=== PATIENT | female | born 1990 | race Two or more races ===

== ENCOUNTER 2021-06-09 12:50 | Observation (INO) | payer MEDICAID ==
[2021-06-09] MEDS ORDERED: PREN-96 PO (13:38)
[2021-06-09] MEDS ORDERED: ACET-1156 PO (13:39)
== END 2021-06-09 15:07 | disposition home or self-care (01) ==
LOC: LDRP 12:50
PROVIDERS: ADMIT Obstetrics & Gynecology; ATTEND Obstetrics & Gynecology
DX: O36.5930 Maternal care for other known or suspected poor fetal growth, third trimester, not applicable or unspecified (principal); Z3A.35 35 weeks gestation of pregnancy
CPT/HCPCS: 59025; 76818; 81002; G0378; G0379

== ENCOUNTER 2021-06-11 19:53 | Observation (INO) | payer MEDICAID ==
[~2021-06-11] VITALS: Ht 154.9 cm; Wt 70.8 kg
[~2021-06-11 19:53] MED LIST: ACET-1156 PO; PREN-96 PO
[2021-06-11] MEDS ORDERED: ACET-1156 PO (20:48)
[2021-06-11] MEDS ORDERED: PREN1TAB52 PO (20:48)
== END 2021-06-11 21:49 | disposition home or self-care (01) ==
LOC: LDRP 19:53
PROVIDERS: ADMIT Obstetrics & Gynecology; ATTEND Obstetrics & Gynecology
DX: O36.5930 Maternal care for other known or suspected poor fetal growth, third trimester, not applicable or unspecified (principal); Z3A.38 38 weeks gestation of pregnancy; Z98.891 History of uterine scar from previous surgery
CPT/HCPCS: 59025; 76818; 81002; 94760; G0378; G0379

== ENCOUNTER 2021-06-14 11:42 | Observation (INO) | payer MEDICAID ==
[~2021-06-14 11:42] MED LIST changes: +PREN1TAB52 PO
== END 2021-06-14 21:51 | disposition home or self-care (01) ==
LOC: LDRP 19:54
PROVIDERS: ADMIT Obstetrics & Gynecology Obstetrics; ATTEND Obstetrics & Gynecology Obstetrics
DX: O36.5930 Maternal care for other known or suspected poor fetal growth, third trimester, not applicable or unspecified (principal); Z20.822 Contact with and (suspected) exposure to COVID-19; Z3A.38 38 weeks gestation of pregnancy; Z98.891 History of uterine scar from previous surgery
CPT/HCPCS: 59025; 76818; 81002; G0378; G0379; U0003

== ENCOUNTER 2021-06-16 05:57 | Inpatient (IN) | payer MEDICAID ==
[~2021-06-16] VITALS: Ht 154.9 cm; Wt 70.8 kg
[2021-06-16] VITALS (17 sets, daily range): BP systolic 94–117; BP diastolic 40–84
[2021-06-16] MEDS ORDERED: ceFAZolin 1GM/50ML 50 ML IV ONE (06:30)
[2021-06-16] MEDS ORDERED: LACTATED RINGER'S 1,000 ML IV SCH (06:30)
[2021-06-16] MEDS ORDERED: SODIUM CITR/CITRIC ACID ORAL SOLN 30 ML PO ONE (06:30)
[2021-06-16] MEDS ORDERED: LACTATED RINGER'S 1,000 ML IV ONE (06:30)
[2021-06-16 08:00] LABS: Basophils # (auto) 0 10 ^3/uL (0-0.2); Basophils % (auto) 0.3 % (0.0-2.0); Eosinophils # (auto) 0.1 10 ^3/uL (0-0.8); Eosinophils % (auto) 0.8 % (0.0-7.0); Hematocrit 35.6 % (36.0-46.0); Hemoglobin 11.9 g/dL (12.2-16.2); Lymphocytes # (auto) 2.3 10 ^3/uL (0.4-5.4); Lymphocytes % (auto) 23.7 % (10.0-50.0); Mean Corpuscular Hemoglobin 29.1 pg (28.0-32.0); Mean Corpuscular Hgb Conc. 33.3 g/dL (32.0-36.0); Mean Corpuscular Volume 87.5 fL (80.0-100.0); Monocytes # (auto) 0.8 10 ^3/uL (0-1.3); Monocytes % (auto) 8.3 % (0.0-12.0); Neutrophils # (auto) 6.5 10 ^3/uL (1.6-8.6); Neutrophils % (auto) 66.9 % (37.0-80.0); Nucleated Red Blood Cells % 0.1 %; Red Blood Cells 4.07 10^6/uL (4.0-5.20); Red Cell Distribution Width 13.4 % (11.8-14.3); White Blood Cell 9.7 10^3/uL (4.4-10.8)
[2021-06-16] MEDS ORDERED: TETRACAINE 1% INJ 2 ML VIAL IJ ONE (08:11)
[2021-06-16 08:19] LABS: Albumin 2.4 g/dL (3.4-5.0); BUN/Creatinine Ratio 13.1; Bilirubin, Total 0.3 mg/dL (0.2-1.0); Calcium 8.4 mg/dL (8.5-10.1); Total Protein 6.7 g/dL (6.4-8.2)
[2021-06-16] MEDS ORDERED: fentaNYL CITRATE 100 MCG/2 ML VL ONE (08:20)
[2021-06-16] MEDS ORDERED: MIDAZOLAM HCL 2MG/2ML 2ml VIAL (1mg/ml) ONE (08:21)
[2021-06-16 08:33] LABS: INR 0.88 (0.9-1.15); Partial Thromboplastin Time 24.8 sec (23.6-33.0)
[2021-06-16] MEDS ORDERED: MORPHINE SULF PF 2 MG/2 ML SYRG ONE (08:49)
[2021-06-16] MEDS ORDERED: NALBUPHINE HCL 10 MG/1ml INJECTION SUBCUT ONE (09:00)
[2021-06-16] MEDS ORDERED: NALOXONE HCL 0.4 MG/ML VIAL IV PRN (09:00)
[2021-06-16] MEDS ORDERED: MIDAZOLAM HCL 2MG/2ML 2ml VIAL (1mg/ml) IV PRN (09:00)
[2021-06-16] MEDS ORDERED: LABETALOL HCL 5 MG/ML 4ML SYRINGE IV PRN (09:00)
[2021-06-16] MEDS ORDERED: HYDROmorphone HCL 2 MG/ML VL IV PRN (09:00)
[2021-06-16] MEDS ORDERED: DexAMETHasone SOD PHOS 10MG/1ML VIAL INJ IV PRN (09:00)
[2021-06-16] MEDS ORDERED: ePHEDrine SULFATE 50 MG/ML AMP IV PRN (09:00)
[2021-06-16] MEDS ORDERED: ONDANSETRON HCL 4 MG/2 ML VIAL IV PRN ×2 (09:00→09:45)
[2021-06-16] MEDS ORDERED: KETOROLAC TROMETH 30 MG/ML 1ML VIAL IV PRN (09:00)
[2021-06-16] MEDS ORDERED: oxyTOCIN 10 UNIT/ML 10ML VIAL ONE (09:09)
[2021-06-16] MEDS ORDERED: CARBOPROST TROMETHAMINE 250 MCG/1ML VIAL IM ONE (09:29)
[2021-06-16] MEDS ORDERED: ceFAZolin 1GM/50ML 50 ML IV SCH (09:45)
[2021-06-16] MEDS ORDERED: LACT. RINGERS/OXYTOCIN 20UNITS 1,000 ML IV ONE (09:45)
[2021-06-16] MEDS ORDERED: GUM (CHEWING) 1 GUM CHEW CHEW ONE (09:45)
[2021-06-16] MEDS: ceFAZolin 1GM/50ML 50 ML IV SCH ×2 (15:45→23:43)
[2021-06-16 16:00] LABS: Urine Bacteria FEW /hpf (None Seen); Urine Blood 1+ /uL (Negative); Urine Mucus FEW (None Seen); Urine Specific Gravity 1.012 (1.001-1.035); Urine WBC 30 /hpf (0 - 5)
[2021-06-16 16:19] LABS: Alcohol, Urine < 3.0 mg/dL (0-10); Amphetamine Screen, Urine NEGATIVE (NEGATIVE); Barbiturate Scree,Urine NEGATIVE (NEGATIVE); Benzodiazephine Screen, Urine POSITIVE (NEGATIVE); Cannabinoid Screen, Urine NEGATIVE (NEGATIVE); Cocaine Screen, Urine NEGATIVE (NEGATIVE); Opiate Scree,Urine NEGATIVE (NEGATIVE); Phencyclidine Screen, Urine NEGATIVE (NEGATIVE)
[2021-06-16] MEDS: ACETAMINOPHEN IV 1000 MG/100ML (10MG/ML) IV PRN (16:42)
[2021-06-16] MEDS: diphenhdrAMINE HCL 50 MG/1 ML VL IV PRN (20:35)
[2021-06-16] MEDS ORDERED: LACTATED RINGER'S 500 ML IV ONE (21:15)
[2021-06-16 21:56] LABS: Basophils # (auto) 0 10 ^3/uL (0-0.2); Basophils % (auto) 0.3 % (0.0-2.0); Eosinophils # (auto) 0 10 ^3/uL (0-0.8); Eosinophils % (auto) 0.4 % (0.0-7.0); Hematocrit 34.4 % (36.0-46.0); Hemoglobin 11.3 g/dL (12.2-16.2); Lymphocytes % (auto) 17.4 % (10.0-50.0); Mean Corpuscular Hemoglobin 28.5 pg (28.0-32.0); Mean Corpuscular Hgb Conc. 32.7 g/dL (32.0-36.0); Monocytes # (auto) 0.6 10 ^3/uL (0-1.3); Monocytes % (auto) 5.3 % (0.0-12.0); Neutrophils # (auto) 8.6 10 ^3/uL (1.6-8.6); Neutrophils % (auto) 76.6 % (37.0-80.0); Red Blood Cells 3.95 10^6/uL (4.0-5.20); Red Cell Distribution Width 12.9 % (11.8-14.3); White Blood Cell 11.3 10^3/uL (4.4-10.8)
[2021-06-17] VITALS (12 sets, daily range): BP systolic 92–115; BP diastolic 53–95
[2021-06-17] MEDS: ACETAMINOPHEN IV 1000 MG/100ML (10MG/ML) IV PRN (00:56)
[2021-06-17] MEDS: diphenhdrAMINE HCL 50 MG/1 ML VL IV PRN ×2 (02:30→03:56)
[2021-06-17 07:30] LABS: Basophils # (auto) 0 10 ^3/uL (0-0.2); Basophils % (auto) 0.3 % (0.0-2.0); Eosinophils # (auto) 0.1 10 ^3/uL (0-0.8); Eosinophils % (auto) 0.7 % (0.0-7.0); Hematocrit 30.7 % (36.0-46.0); Hemoglobin 10.1 g/dL (12.2-16.2); Lymphocytes # (auto) 1.9 10 ^3/uL (0.4-5.4); Lymphocytes % (auto) 21.4 % (10.0-50.0); Mean Corpuscular Hemoglobin 28.8 pg (28.0-32.0); Mean Corpuscular Hgb Conc. 32.8 g/dL (32.0-36.0); Mean Corpuscular Volume 87.8 fL (80.0-100.0); Monocytes # (auto) 0.5 10 ^3/uL (0-1.3); Monocytes % (auto) 5.7 % (0.0-12.0); Neutrophils # (auto) 6.3 10 ^3/uL (1.6-8.6); Neutrophils % (auto) 71.9 % (37.0-80.0); Nucleated Red Blood Cells % 0.1 %; White Blood Cell 8.8 10^3/uL (4.4-10.8)
[2021-06-17] MEDS ORDERED: HYDROcodone-ACET 5/325MG TAB PO PRN (07:45)
[2021-06-17] MEDS: ceFAZolin 1GM/50ML 50 ML IV SCH (07:50)
[2021-06-17] MEDS: IBUPROFEN 800 MG TAB PO PRN ×2 (07:50→22:12)
[2021-06-17] MEDS: DOCUSATE CALCIUM 240 MG CAP PO SCH (10:19)
[2021-06-17] MEDS: DOCUSATE SOD 100 MG CAP PO SCH ×2 (10:20→22:12)
[2021-06-17] MEDS: SIMETHICONE 80 MG CHEWABLE TABLET PO SCH ×3 (13:03→22:12)
[2021-06-17] MEDS: HYDROcodone-ACET 5/325MG TAB PO PRN (20:33)
[2021-06-18 02:11] VITALS: BP 104/64
[2021-06-18 03:14] VITALS: BP 104/64
[2021-06-18] MEDS: SIMETHICONE 80 MG CHEWABLE TABLET PO SCH (05:40)
[2021-06-18] MEDS: HYDROcodone-ACET 5/325MG TAB PO PRN (05:48)
[2021-06-18 07:02] VITALS: BP 117/75
[2021-06-18] MEDS ORDERED: DOCU240C23 PO (07:05)
[2021-06-18] MEDS ORDERED: IBUP800T26 PO (07:05)
[2021-06-18 07:06] LABS: RPR Non Reactive (Non Reactive)
[2021-06-18] MEDS: DOCUSATE SOD 100 MG CAP PO SCH (10:00)
[2021-06-18] MEDS: DOCUSATE CALCIUM 240 MG CAP PO SCH (10:00)
== END 2021-06-18 10:22 | disposition home or self-care (01) | DRG 540 ==
LOC: LDRP 05:57
PROVIDERS: ADMIT Obstetrics & Gynecology; ATTEND Obstetrics & Gynecology
PROC: 10D00Z1 Extraction of Products of Conception, Low, Open Approach (ICD-10-PCS; principal; 2021-06-16 08:35)
DX: O34.211 Maternal care for low transverse scar from previous cesarean delivery (principal); Z20.822 Contact with and (suspected) exposure to COVID-19; Z37.0 Single live birth; Z3A.39 39 weeks gestation of pregnancy
CPT/HCPCS: 36415; 59025; 80053; 80307; 81001; 81002; 85025; 85610; 85730; 86592; 86850; 86900; 86901; 87426; 94760; 94762; 96360; 96361; 96365; 96366; 96374; G0378; J0131; J0690; J2250; J2590